=== PATIENT | male | born 1965 | race American Indian/Alaskan Native ===

== ENCOUNTER 2017-12-14 21:56 | Emergency (ER) | payer MEDICAID ==
--- NOTE | 2017-12-14 22:40 | Emergency Department Report ---
ED Psych HPI - General Stated Complaint: MH EVALUATION Time Seen by Provider: 12/14/17 22:25 - History of Present Illness Initial Comments: Patient is a 52 years old male with history of paranoid schizophrenia. Patient brought to the ER via EMS after patient was found in a parking lot acting strange. Patient stated that somebody is chasing him and trying to kill him. Patient stated that his medication is not good because it hurts his stomach so he decided to through it away. When patient asked if he feel like he wanted to hurt himself or someone else patient did not answer. Complaint: altered mental status - Related Data Home Medications Medication Instructions Recorded Confirmed Last Taken Haloperidol Lactate(Nf) [Haldol] 10 mg PO DAILY 05/16/13 09/27/14 1 Day Ago ~09/26/14 Quetiapine Fumarate [Seroquel XR] 300 mg PO QDAY 05/16/13 09/27/14 1 Day Ago ~09/26/14 Previous Rx's Medication Instructions Recorded Last Taken Type Omeprazole Magnesium [Prilosec Otc] 20 mg PO QDAY #30 tablet. 03/22/14 1 Day Ago Rx ~09/26/14 Allergies Allergy/AdvReac Type Severity Reaction Status Date / Time No Known Allergies Allergy Verified 06/29/15 17:10 ED Review of Systems ROS: Stated complaint: MH EVALUATION Other details as noted in HPI Comment: All other systems reviewed and negative Respiratory: denies: cough Cardiovascular: denies: chest pain, palpitations Gastrointestinal: denies: abdominal pain, nausea, vomiting Neurological: denies: headache, weakness, numbness, paresthesias, confusion Psychiatric: visual hallucinations ED Past Medical Hx - Past Medical History Hx Psychiatric Treatment: Yes (schziophrenia,BIPOLAR) - Surgical History Additional Surgical History: Nose surgery; left inguinal hernia repair - Social History Smoking Status: Never Smoker Substance Use Type: None - Medications Home Medications: Home Medications Medication Instructions Recorded Confirmed Last Taken Type Haloperidol Lactate(Nf) [Haldol] 10 mg PO DAILY 05/16/13 09/27/14 1 Day Ago History ~09/26/14 Quetiapine Fumarate [Seroquel XR] 300 mg PO QDAY 05/16/13 09/27/14 1 Day Ago History ~09/26/14 Omeprazole Magnesium [Prilosec Otc] 20 mg PO QDAY #30 tablet. 03/22/14 1 Day Ago Rx ~09/26/14 ED Physical Exam - General Limitations: No Limitations General appearance: alert, anxious - Head Head exam: Present: atraumatic, normocephalic, normal inspection - ENT ENT exam: Present: normal exam, normal orophraynx, mucous membranes moist - Neck Neck exam: Present: normal inspection, full ROM. Absent: tenderness, meningismus, lymphadenopathy, thyromegaly - Respiratory Respiratory exam: Present: normal lung sounds bilaterally - Cardiovascular Cardiovascular Exam: Present: regular rate, normal rhythm, normal heart sounds - GI/Abdominal GI/Abdominal exam: Present: soft, normal bowel sounds. Absent: distended, tenderness, guarding, rebound, rigid, organomegaly, mass, bruit, pulsatile mass , hernia - Extremities Exam Extremities exam: Present: normal inspection, full ROM, normal capillary refill - Back Exam Back exam: Present: normal inspection, full ROM. Absent: tenderness, CVA tenderness (R), CVA tenderness (L), muscle spasm, paraspinal tenderness, vertebral tenderness - Neurological Exam Neurological exam: Present: alert, oriented X3, CN II-XII intact, normal gait, reflexes normal - Psychiatric Psychiatric exam: Present: anxious. Absent: depressed - Skin Skin exam: Present: warm, intact, normal color ED Course Vital Signs 12/14/17 22:33 Temperature 98.4 F Pulse Rate 72 Respiratory 18 Rate Blood Pressure 147/92 O2 Sat by Pulse 98 Oximetry ED Medical Decision Making - Lab Data Result diagrams: 12/14/17 22:48 12/14/17 22:48 Critical care attestation.: If time is entered above; I have spent that time in minutes in the direct care of this critically ill patient, excluding procedure time. ED Disposition Clinical Impression: Acute psychosis, Paranoid schizophrenia Disposition: [id number] PSY HOSP/PSY UNIT Is pt being admited?: No Condition: Stable
[2017-12-14 22:59] LABS: Basophils % (Auto) 0.6 % (0.0-1.8); Eosinophils # (Auto) 0.1 K/mm3 (0.0-0.4); Eosinophils % (Auto) 1.3 % (0.0-4.3); Hematocrit 39.3 % (35.5-45.6); Hemoglobin 12.9 gm/dl (11.8-15.2); Lymphocytes # (Auto) 2.2 K/mm3 (1.2-5.4); Lymphocytes % (Auto) 39.3 % (13.4-35.0); Mean Corpuscular HGB Conc 33 % (32-34); Mean Corpuscular Hemoglobin 29 pg (28-32); Mean Corpuscular Volume 87 fl (84-94); Monocytes # (Auto) 0.6 K/mm3 (0.0-0.8); Platelet Count 172 K/mm3 (140-440); Red Blood Count 4.53 M/mm3 (3.65-5.03); Red Cell Distribution Width 14.5 % (13.2-15.2)
[2017-12-14 23:17] LABS: Alanine Aminotransferase 24 units/L (7-56); Albumin 4.3 g/dL (3.9-5); BUN/Creatinine Ratio 16; Blood Urea Nitrogen 13 mg/dL (9-20); Hemolysis Index 1
[2017-12-15 00:50] LABS: Bilirubin,Urine NEG (Negative); Blood,Urine NEG (Negative); Color,Urine Yellow (Yellow); Mucus,Urine 1+ /HPF; Protein,Urine <15 mg/dL mg/dL (Negative); RBC,Urine < 1.0 /HPF (0.0-6.0)
[2017-12-15 00:59] LABS: Amphetamine Screen,Urine PRESUMPTIVE NEGATIVE; Benzodiazepines Screen,Urine PRESUMPTIVE NEGATIVE; Cannabinoid Screen,Urine PRESUMPTIVE NEGATIVE; Cocaine Screen,Urine PRESUMPTIVE NEGATIVE; Methadone Screen,Urine PRESUMPTIVE NEGATIVE; Opiate Screen,Urine PRESUMPTIVE NEGATIVE
--- NOTE | 2017-12-15 15:09 | Consultation ---
History of Present Illness - Reason for Consult Consult date: 12/15/17 Reason for consult: Mental Health Evaluation Requesting physician: VALENTÍN GARNER - Chief Complaint Chief complaint: "What do you want" - History of Present Psychiatric Illness 52 years old AA male presenting to the ER for bizarre behavior. Today the patient is calm, but disorganized during the assessment. He stated that a "doll " was after him while pointing to the wall. He could not explain what happened prior to him being brought to the ER. His answers to questions were not logical. This patient is not a good historian at this time. Medications and Allergies Allergies Allergy/AdvReac Type Severity Reaction Status Date / Time No Known Allergies Allergy Verified 06/29/15 17:10 Home Medications Medication Instructions Recorded Confirmed Last Taken Type Haloperidol Lactate(Nf) [Haldol] 10 mg PO DAILY 05/16/13 12/15/17 1 Day Ago History ~09/26/14 Quetiapine Fumarate [Seroquel XR] 300 mg PO QDAY 05/16/13 12/15/17 1 Day Ago History ~09/26/14 Omeprazole Magnesium [Prilosec Otc] 20 mg PO QDAY #30 tablet. 03/22/14 1 Day Ago Rx ~09/26/14 Past psychiatric history - Past Medical History Past Medical History: other (Unable to obtain ) Past Surgical History: Other (Unable to obtain ) - past Psychiatric treatment and history psychiatric treatment history: Unable to obtain a psy hx and a fam psy hx. - Social History Social history: other (Unable to obtain) Mental Status Exam - Vital signs Last Vital Signs Temp 98.4 F 12/14/17 22:33 Pulse 72 12/14/17 22:33 Resp 18 12/15/17 09:03 BP 147/92 12/14/17 22:33 Pulse Ox 98 12/15/17 09:03 - Exam Narrative exam: MSE: Appearance: calm Behavior: regular eye contact Speech: regular rate and tone Mood: "okay" Affect: constricted Thought Process: disorganized, loose associations Thought Content: denies SI/HI's and AVH's, paranoid, delusional Motor Activity: ambulatory Cognition: A/O x 3 Insight: poor Judgment: poor Results Result Diagrams: 12/14/17 22:48 12/14/17 22:48 Abnormal lab results 12/14/17 12/14/17 Range/Units 22:48 22:48 Lymph % (Auto) 39.3 H (13.4-35.0) % [place] % (Auto) 11.0 H (0.0-7.3) % Sodium 131 L (137-145) mmol/L Chloride 97.6 L (98-107) mmol/L All other labs normal. Assessment and Plan Assessment and plan: Impression: Unspecified Psychosis. Today the patient is calm, but disorganized during the assessment. UDS is negative. DDx: Schizophrenia, Paranoid Type, R/O Bipolar DO Recommendation/Plan: Continue 1013 with placement to [place] today.
[2017-12-15 20:38] VITALS: BP 132/80
== END 2017-12-15 21:20 ==
LOC: EEVIPCON 21:56 → ED 21:56
DX: F20.0 Paranoid schizophrenia (principal); F31.9 Bipolar disorder, unspecified; Z79.899 Other long term (current) drug therapy
CPT/HCPCS: 36415; 80053; 80307; 81001; 85025; 99285; G0480; 80320